=== PATIENT | male | born 1945 | race Caucasian/White ===

== ENCOUNTER 2018-02-28 09:58 | Day surgery (SDC) | payer SELFPAY ==
[2018-02-28] VITALS (7 sets, daily range): BP systolic 109–129; BP diastolic 74–84; PULSE 42–57; RESP 16; TEMP 36–36.3; O2SAT 97–100; BMI 368.7
--- NOTE | 2018-02-28 | IMM_PTH ---
PATIENT: RANDOLPH RUFFIN LOC: [facility] U#:[id number] AGE/SX: 72/M ROOM: RE02/28/[address]: Dr. Hany Coffey MD : 1945 BED: DIS: 02/28/2018 SPEC #: [id number] RECD: 03/01/18 10:56 STATUS: DILCIA SANTANA #: [id number] DANIEL: 02/28/18 00:[address]: Hany Coffey DEPT: IMMUNOHISTOCHEMISTRY RECD BY: Sharlene Dorsey ENTERED: 03/01/18 10:56 SP TYPE: IMMUNO OTHR DR: Dr. Ralf Hawkins MD Tissues: A - Stomach, NOS Procedures: H Pylori (initial) PHYSICIAN & INSTITUTION [place] [address] SPECIMEN INFORMATION: Tissue Source: A ? Antral biopsy Clinical Info: Fecal occult blood positive Specimen Number: [id number] CPT code: 55255 METHODOLOGY: Deparaffinized sections of prefer/formalin-fixed tissue or PAP/DQ stained slides are incubated with monoclonal/polyclonal antibodies/oligonucleotide probes. Localization is made via biotin free immunoperoxidase method. Appropriate controls are performed and reacted as expected. Results on target cell population are indicated in the following table: RESULTS: ANTIBODY / CLONE RESULT Block A H Pylori (polyclonal) negative These tests were developed and their performance characteristics determined by [facility]. They may not have been cleared or approved by the U.S. Food and Drug Administration. The FDA has determined that such clearance or approval is not necessary. INTERPRETATION: A. Antral biopsy: Negative for Helicobacter pylori organisms. SJ:burke 03/01/18
--- NOTE | 2018-02-28 | EGD_PTH ---
PATIENT: RANDOLPH RUFFIN LOC: EN U#:[id number] AGE/SX: 72/M ROOM: RE02/28/[address]: Dr. Hany Coffey MD : 1945 BED: DIS: 02/28/2018 SPEC #: [id number] RECD: 02/28/18 13:15 STATUS: DILCIA SANTANA #: [id number] DANIEL: 02/28/18 00:[address]: Hany Coffey DEPT: SURGICAL PATHOLOGY RECD BY: Jd Carvalho ENTERED: 02/28/18 13:33 SP TYPE: EGD BIOPSY KENNY DR: Dr. Ralf Hawkins MD Tissues: A - Gastric mucous membrane B - Gastric fundus C - Esophageal mucous membrane D - Sigmoid colon biopsy E - Sigmoid colon biopsy Procedures: Surgery Specimen Level IV HEADER OPERATION: EGD; colonoscopy PRE-OP DIAGNOSIS: Fecal occult blood positive TISSUE SUBMITTED: A ? Antral biopsy, B ? Fundic polyp biopsy, C ? Distal esophageal biopsy, D ? Proximal sigmoid polyp, E ? Distal sigmoid polyp MICROSCOPIC DIAGNOSIS A. Antral biopsy: Mild gastritis. B. Fundic gland polyp, biopsy: Fragments of fundic gland polyp. C. Distal esophageal biopsy: Fragment of squamous epithelium with mild chronic inflammation. D. Proximal sigmoid polyp, polypectomy: Tubular adenoma with focal high-grade dysplasia. See comment. E. Distal sigmoid polyp, biopsy: Tubular adenoma. SJ:burke 03/01/18 COMMENT A. The results of immunohistochemistry for Helicobacter pylori will be reported separately ([id number]). D. High grade dysplasia is noted at the luminal surface of the polyp. The resection margin appears to be free of adenomatous changes. MICROSCOPIC DESCRIPTION Slides are reviewed. A. The specimen shows fragments of gastric mucosa with chronic inflammatory cell infiltrates in the lamina propria consisting of lymphocytes and plasma cells, consistent with mild chronic gastritis. GROSS DESCRIPTION A - Received in fixative is one container labeled with the patient's name and designated antral body biopsy. The specimen consists of one irregular fragment of light nair soft tissue that measures 0.4 x 0.2 x 0.1 cm. The specimen is totally submitted in one cassette. B - Received in fixative is one container labeled with the patient's name and designated fundic polyp biopsy. The specimen consists of two irregular fragments of light nair soft tissue that in aggregate measure 0.6 x 0.3 x 0.1 cm. The specimen is totally submitted in one cassette. C - Received in fixative is one container labeled with the patient's name and designated distal esophageal biopsy. The specimen consists of one irregular fragment of light nair soft tissue that measures 0.6 x 0.2 x 0.1 cm. The specimen is totally submitted in one cassette. D - Received in fixative is one container labeled with the patient's name and designated proximal sigmoid polyp. The specimen consists of a pink-red polyp measuring 1.7 x 1.5 x 1 cm. The apparent base is inked. The polyp is serially sectioned and submitted entirely in one cassette. E - Received in fixative is one container labeled with the patient's name and designated distal sigmoid polyp. The specimen consists of a piece of nair-pink polyp measuring 0.5 x 0.5 x 0.3 cm. The specimen is totally submitted in one cassette. / SJ:rg 02/28/18 TC:1 CPT: 88900 x5
--- NOTE | 2018-02-28 12:03 | OP.PCM_ITS ---
Problem List (1) Fecal occult blood test positive Status: Acute Report of Operation Date of Procedure: 02/28/18 Pre-Operative Diagnosis: Fecal occult blood positive Post-Operative Diagnosis: Minimal antral gastritis. Benign-appearing gastric fundic polyp. Sigmoid diverticulosis. 2.5 cm pedunculated polyp proximal sigmoid colon. 1 cm pedunculated polyp distal sigmoid colon Surgery/Procedure Performed:: Esophagogastroduodenoscopy with cold forcep biopsies. Colonoscopy with hot snare polypectomy ?2 Description of Surgical Findings:: Amount and informed consent was obtained. 72-year-old gentleman was taken to the endoscopy suite. He was placed in left loud skin position. He underwent monitored anesthesia care. The oropharynx anesthetized with Topex. Flexible gastroscope was inserted the proximal mid distal esophagus did not appear to be remarkable. EG junction was at 37 cm. The scope was advanced in the stomach minimal erythema of the antrum noted. The scope was advanced through the pylorus the first and second portion of the duodenum were inspected this was not remarkable. The scope was withdrawn back into the stomach and antral biopsy was obtained with cold forcep. Scope was retroflexed the EG junction and cardia inspected. The cardia was not remarkable. The EG junction appear to be intact. There for a few scattered gastric fundic polyps. A cold forcep biopsy of one was obtained. Excess fluid and air was aspirated free. The scope was withdrawn to the distal esophagus and distal esophageal biopsy was obtained. Excess fluid and air was aspirated free the procedure was completed with the patient tolerating it well. The patient was kept in a left lateral decubitus position. Digital rectal exam performed. Lax anal tone. Grade 2-3 internal hemorrhoids. 2+ enlarged prostate without mass. Flexible colonoscope inserted the rectum advanced was somewhat tortuous sigmoid colon. The scope was then readily advanced to the transverse colon with some transabdominal pressure is advanced to the cecum. The cecum ileocecal valve area was nicely achieved. Bowel prep was good. The scope was carefully withdrawn from the ascending transverse and descending colon. And what was felt to be the proximal sigmoid colon at 30 cm a fairly sizable at least 2-1/2 cm diameter pedunculated polyp was encountered. A hot snare using cautery and then cautery with plan was used to resect the pedunculated portion. A Das net was used to retrieve the lesion. 3 separate hemostatic clips were placed at the base of this pedunculated area to assure hemostasis. The scope was then further withdrawn and what was felt to be the distal sigmoid colon close to the rectal junction a much smaller 1 cm pedunculated polyp was encountered. Snare cautery blend setting was used to resect and retrieve this polyp as well. There was significant sigmoid diverticulosis as well. The scope was retroflexed within the rectum the anorectal verge inspected hemorrhoidal changes noted. Excess fluid nurse aspirated free after the scope was replaced up to the proximal sigmoid area to assure hemostasis at that resection site and hemostasis at the more distal resection site. Excess fluid nurse aspirated free the procedure was completed the patient tolerating it well. Impression Minimal antral erythema likely consistent with a mild antral gastritis. Benign- appearing gastric fundic polyps. Sigmoid diverticulosis. Large pedunculated polyp of the proximal sigmoid colon Smaller but unrelated polyp of the distal sigmoid colon It is likely that the proximal sigmoid colon would be an unlikely source of fecal occult blood positivity. The patient's previous colonoscopy was January 04, 2005. We will await final pathology. If dysplasia is identified and will recommend follow-up colonoscopy at 1 year and if not then at 3 years. Cc: Melony Art NP and Dr. Ralf Hawkins and Dr. Eliceo Coffey M.D., F.A.C.S. Type of Anesthesia:: MAC
== END 2018-02-28 13:01 | disposition home or self-care (01) ==
LOC: EN 10:00 → AC 10:04
PROVIDERS: Family Provider Family Medicine; PCP Family Medicine; Visit Provider Surgery
PROC: 0DJD8ZZ Inspection of Lower Intestinal Tract, Via Natural or Artificial Opening Endoscopic (ICD-10-PCS; CPT 45378; principal; 2018-02-28 10:55)
DX: K29.70 Gastritis, unspecified, without bleeding (principal); K31.7 Polyp of stomach and duodenum; K20.9 Esophagitis, unspecified; D12.5 Benign neoplasm of sigmoid colon; K57.30 Diverticulosis of large intestine without perforation or abscess without bleeding; K64.8 Other hemorrhoids; N40.0 Benign prostatic hyperplasia without lower urinary tract symptoms; F41.9 Anxiety disorder, unspecified; Z87.19 Personal history of other diseases of the digestive system; M19.90 Unspecified osteoarthritis, unspecified site; L71.9 Rosacea, unspecified; J30.2 Other seasonal allergic rhinitis; E04.9 Nontoxic goiter, unspecified; E78.00 Pure hypercholesterolemia, unspecified; G30.0 Alzheimer's disease with early onset; F02.80 Dementia in other diseases classified elsewhere, unspecified severity, without behavioral disturbance, psychotic disturbance, mood disturbance, and anxiety; N28.89 Other specified disorders of kidney and ureter; Z87.891 Personal history of nicotine dependence; Z79.82 Long term (current) use of aspirin; Z79.899 Other long term (current) drug therapy
CPT/HCPCS: 43239; 45385; 88305; 88342; J7120

== ENCOUNTER → 2018-08-21 08:02 | Outpatient (CLI) | payer MEDICARE, OTHER, SELFPAY ==
[2018-08-21 10:22] LABS: Thyroid Stim Hormone (TSH) 0.76 uIU/mL (0.358-3.74)
== END ==
PROVIDERS: Family Provider Family Medicine; PCP Family Medicine; Referring Provider Internal Medicine Endocrinology, Diabetes & Metabolism; Visit Provider Internal Medicine Endocrinology, Diabetes & Metabolism
DX: E04.2 Nontoxic multinodular goiter (principal)
CPT/HCPCS: 36415; 84443

== ENCOUNTER → 2018-09-03 07:37 | Outpatient (CLI) | payer MEDICARE, OTHER, SELFPAY ==
--- NOTE | 2018-09-03 07:44 | CT_ITS ---
STUDY: CT ABDOMEN AND PELVIS WITH CONTRAST REASON FOR EXAM: Male, 72 years old. History of renal cell cancer. RADIATION DOSAGE (If Supplied By Facility): CTDIvol = ( 10.72 ) mGy, DLP = ( 1107.20 ) mGycm TECHNIQUE: Transaxial images were obtained from the dome of the diaphragm to the symphysis pubis without oral contrast. 100 ml of Isovue 300 contrast was administered. Sagittal and coronal images were reconstructed. Individualized dose optimization techniques were used for this CT. COMPARISON: June 26, 2015 CT scan abdomen and pelvis FINDINGS: There is a calcified granuloma in the right lower lobe measuring 4.1 mm. There coronary calcifications. There is mild cardiac enlargement. There is calcification of the right hilum compatible granulomatous disease. The liver is mildly inhomogeneous. There are punctate calcifications in the liver compatible with old granulomatous disease. There is a focal low-attenuation measuring 6.4 mm in the periphery of the right hepatic lobe. There is a medially located cystic structure and/or summation artifact similar to prior study measuring 4.5 mm. Gallbladder and extrahepatic biliary system. Normal spleen. Normal pancreas. Normal bilateral adrenal glands. Right kidney: There is a new exophytic nodule measuring 1.2 x 1.1 cm. Not seen on prior studies. There is no evidence of hydronephrosis. There is mild focal left cortical renal thinning. There is vascular calcification in the hilum. There is a minimal hiatal hernia. Normal small intestine. The bowel is tortuous. There are numerous diverticula present without visualized diverticulitis. The appendix is visualized and appears normal. The aorta is tortuous. The aorta measures 2.4 cm. Normal inferior vena cava. There are nonspecific small periaortic lymph nodes. Within the soft tissue between the splenic confluence in the inferior vena cava there is a lymph node that measures 0.8 x 0.9 cm. This is similar to the prior study. Anterior to the bifurcation there is a small focus of mild thickening of the mesentery stable since prior study. The bladder is decompressed wall appears mildly thickened. The prostate is mildly enlarged and persistent to the base of the bladder. The prostate measures 4.0 x 4.8 cm. There is a left-sided fatty inguinal hernia. There is multilevel spondylosis. At the level of L203 L3-L4 and L4-L5 and L5-S1 there are broad-based disc bulges with moderate to severe neural foraminal narrowing [id number] central stenosis. CT/Abdomen/Pelvis WITH Contrast IMPRESSION: There is a 1.2 x 1.1 cm hyperdense mass in the periphery of the right kidney that was not definitively seen on prior study. This warrants further investigation given patient's clinical history of renal cell cancer. This may represent a recurrence. Stable small cystic structures in the liver. Mild hepatic steatosis mild inhomogeneity of the liver which is nonspecific and similar to prior study. Nonspecific small mesenteric and retroperitoneal lymph nodes. There is possible mesenteric scarring or subtle lymphadenopathy within the mesentery or a tiny focus of small vessels measuring 2.0 x 1.1 cm stable since prior study. Diverticulosis no visualized diverticulitis. Mild prostate enlargement. Left-sided inguinal hernia Multilevel degenerative disc disease. Evidence of old granulomatous disease Coronary artery calcification. Electronically Signed: Yolanda Hsu MD at 22:53 EST Tel , Service support ,
[2018-09-03 08:10] LABS: CREATININE FINGERSTICK 1.4 mg/dL (0.70-1.30)
== END ==
PROVIDERS: Family Provider Family Medicine; PCP Family Medicine; Referring Provider Urology; Visit Provider Urology
DX: N28.89 Other specified disorders of kidney and ureter (principal); K76.89 Other specified diseases of liver; K76.0 Fatty (change of) liver, not elsewhere classified; K57.90 Diverticulosis of intestine, part unspecified, without perforation or abscess without bleeding; N40.0 Benign prostatic hyperplasia without lower urinary tract symptoms; K40.90 Unilateral inguinal hernia, without obstruction or gangrene, not specified as recurrent; Z85.528 Personal history of other malignant neoplasm of kidney
CPT/HCPCS: 74177; Q9967

== ENCOUNTER 2019-05-13 07:17 | Day surgery (SDC) | payer MEDICARE, OTHER, SELFPAY ==
[2019-04-30 08:16] VITALS: BMI 25.9
--- NOTE | 2019-04-30 08:39 | HP_ITS ---
Intake Vital Signs 04/30/19 Height 5 ft 8 in 04/30/19 Weight: 171 lb 04/30/19 Body Mass Index (BMI) 25.9 04/30/19 Blood Pressure 128/70 H 04/30/19 Blood Pressure Location Rt brachial 04/30/19 Respiratory Rate 18 04/30/19 Pulse Rate 56 L 04/30/19 Pulse Source Monitor 04/30/19 Temperature 98.0 F 04/30/19 Pulse Ox 96 04/30/19 Oxygen Delivery Method room air 04/30/19 Body Mass Index (BMI) 368.7 Intake Visit Reasons: C-Scope Consult due for 1 yr Scope [employer] Required: No Is patient in pain?: No Allergies No Known Allergies Allergy (Verified 04/30/19 08:17) Medications aspirin 81 mg tablet,delayed release 81 mg PO QDAY 02/26/18 [History Confirmed 04/30/19] atorvastatin 10 mg tablet 10 mg PO QDAY 02/26/18 [History Confirmed 04/30/19] donepezil 10 mg tablet 10 mg PO BID tab 02/26/18 [History Confirmed 04/30/19] ipratropium bromide 42 mcg (0.06 %) nasal spray 2 spray INTRANASAL TID 02/26/18 [History Confirmed 04/30/19] lactobacillus combination no.9 4 billion cell capsule 4,000 mmu cells PO QDAY 02/26/18 [History Confirmed 04/30/19] memantine 28 mg capsule sprinkle,extended release 24hr 28 mg PO QDAY 02/26/18 [History Confirmed 04/30/19] olopatadine 0.2 % eye drops 1 drp OPHTHALMIC QDAY 02/26/18 [History Confirmed 04/30/19] tamsulosin 0.4 mg capsule 0.4 mg PO QDAY 02/26/18 [History Confirmed 04/30/19] eszopiclone 2 mg tablet 1 mg PO QHS tab 04/30/19 [History Confirmed 04/30/19] [facility] Medical History (Updated 04/30/19 @ 08:36 by Hany Coffey MD) Personal history of colonic polyps (Acute) Anxiety (Acute) Hemorrhoids (Acute) Blood in stool (Acute) Rosacea (Acute) Arthritis (Acute) Seasonal allergies (Acute) Hypercholesterolemia (Acute) Goiter, nontoxic, multinodular (Acute) Early onset Alzheimer's dementia (Acute) Abdominal pain (Acute) Alzheimer's dementia (Acute) Diarrhea (Acute) Surgical History (Updated 04/30/19 @ 08:15 by Rebecca Gardiner) No history of previous surgery (Acute) Family History (Updated 04/30/19 @ 08:15 by Rebecca Gardiner) Mother Diabetes Father Cancer Lung cancer High cholesterol Social History (Updated 04/30/19 @ 08:40 by Hany Coffey MD) Smoking Status: Former smoker second hand exposure: No alcohol intake: current substance use type: does not use caffeine: Yes (Rarely) what type of physical activity do you participate in: none frequency: does not exercise seatbelt use: always HPI HPI HPI: RANDOLPH RUFFIN, is a 73 M who presents to the office today for HPI HPI Surgical H&P: Yes HPI: RANDOLPH RUFFIN, is a 73 M who presents to the office today for one-year follow-up colonoscopy based upon his previous history of colonoscopy with large pedunculated proximal sigmoid polyp with high-grade dysplasia. The patient has dementia. He is accompanied by his . There apparently have been issues over the past year. They winter in [place]. Both in December and in January he had incontinence of stool while in the shower. Apparently they did not specifically seek follow-up at that time. Also to the patient has had apparently extensive evaluation at the [facility]. The patient previously was cared for by Dr. Sanchez but now has converted his care to Dr. Ralf Hawkins. He has been seen within the past month. The is also concerned about weight loss. Apparently at the patient's peak he weighed 188 pounds and currently weighs 171 pounds. I cannot get any symptoms out of the patient regarding heartburn or epigastric pain. He complains of a left subcostal left flank discomfort which is been present for 2 years. He had previously last year had a CT scan suggesting a possible right renal mass. He was evaluated by and by the report of the this is felt to be benign with follow-up scheduled for [address] scan also suggested a small left inguinal hernia containing fat. She did state that he recently had an abdominal ultrasound and that Dr. Hawkins as this information as well as the additional work-up. He is not currently on any medication for reflux or peptic ulcer disease. Only anticoagulant is aspirin. Combined esophagogastroduodenoscopy with biopsy and colonoscopy with hot snare polypectomy performed March 01, 2018 reflected the following: Minimal antral erythema likely consistent with a mild antral gastritis. Benign- appearing gastric fundic polyps. H. pylori negative Sigmoid diverticulosis. Large pedunculated polyp of the proximal sigmoid colon. Tubular adenoma with high-grade dysplasia Smaller but unrelated polyp of the distal sigmoid colon. Tubular adenoma. ROS General General: No weight change, appetite, fatigue, colon cancer, breast cancer or weakness HEENT HEENT: No difficulty swallowing, eye injury, eye surgery, swollen glands or hoarseness Endo Endocrine: No thyroid disease, diabetes mellitus, thyroid cancer, Hair loss, heat intolerance or cold intolerance Skin Skin: No rash or changing moles Breast Breast: No left breast lump, right breast lump, nipple discharge, breast pain, abnormal mammogram, abnormal US or breast enlargement Musc Musculoskeletal: Yes arthritis; no back problems, rheumatoid arthritis, gout or joint pain Cardio Cardiovascular: No murmur, pacemaker, heart disease, atrial fibrillation, high blood pressure, heart attack, heart stent, palpitations, shortness of breat with exertion or chest pain Psych Psychiatric: No depression, anxiety or hearing voices Resp Respiratory: No shortness of breath, No sleep apnea, No cough, No COPD, No asthma, No emphysema, No wheezing Gastro Gastrointestinal: Yes abdominal pain, No nausea or vomiting, Yes diarrhea, No constipation, No blood in stool, No acid reflux, No hemorrhoids, No ulcers, No gallbladder problem, No black,tarry stools Pedro Hematologic: No blood thinners, No blood disorders, No bleeding, No anemia, No blood clots Neuro Neurologic: No system reviewed and no additional complaints, except as docu, No as per HPI, No abnormal walking, No abnormal hearing, No abnormal movements, No abnormal speech, No behavioral changes, No burning sensations, No confusion, No seizure-like activity, No unsteadiness, No dizziness, No localized weakness, No frequent falls, No headache(s), No lack of coordination, No loss of vision, No memory loss, No numbness, No other visual disturbances, No radiating pain, No restless legs, No sensory deficit, No fainting, No tingling, No tremor(s), No weakness, No other Exam Const General: cooperative, healthy appearing, no acute distress, well developed Nutritional Appearance: average body habitus Orientation: alert, awake, oriented x3 Other: Patient is not able to answer historical questions secondary to chronic dementia HENMT Head: normal to inspection Eyes General: appearance normal, both eyes and all related structures Neck Neck: normal visual inspection Chest Chest palpation & inspection: normal inspection of the chest Breast Palpation: No nipple discharge Other: Back nontender to percussion Resp Effort & Inspection: normal respiratory effort Auscultation: clear to auscultation bilaterally Cardio Rate: regular rate Rhythm: regular rhythm Heart Sounds: no murmurs GI Palpation: soft, no hepatosplenomegaly Auscultation: normal bowel sounds Other: Small nontender left inguinal hernia Neuro Cognition: abnormal cognition Extrem General: no calf tenderness bilaterally Psych Affect: normal affect Assessment & Plan Problems 1. Personal history of colonic polyps Z86.010 Plan Personal history of large sigmoid polyp tubular adenoma with grade dysplasia. Colonoscopy February 2018 with recommendations for follow-up at 1 year. 2 episodes of fecal incontinence in December and January with current complaint of more frequent stools 4-5 times daily of undetermined etiology. Previous CT scan suggesting small left inguinal hernia with fat. Minimal current findings on clinical examination and asymptomatic. Complaint of left flank pain chronic Ongoing medical and urology follow-up of right renal finding on CT concerned regarding weight loss with by her report ongoing primary care evaluation. I recommended the patient a colonoscopy with possible polypectomy if indicated. I recommend random colonic biopsies evaluating for possible microcytic colitis. Because of his dementia we will utilize monitored anesthesia care. He is aware of the technique, benefit, risk and alternatives. We will schedule and proceed as noted. I have additionally asked the to bring me copies of the [facility] work- up CC: Dr. Ralf Coffey M.D., F.A.C.S. Coding Level of Care Code Off vis,est,level 3 Diagnoses Personal history of colonic polyps Z86.010 04/30/19 0840 <Electronically signed by Hayn lopez MD> Date _ Hany Coffey MD I have re-examined the patient. There are no clinical changes since date of exam.
[2019-05-13 07:45] VITALS: BP 106/60; PULSE 57; RESP 14; TEMP 37; O2SAT 98; BMI 24.9
--- NOTE | 2019-05-13 08:30 | COLBX_PTH ---
PATIENT: RANDOLPH RUFFIN LOC: EN U#:[id number] AGE/SX: 73/M ROOM: RE05/13/[address]: Dr. Hany Coffey MD : 1945 BED: DIS: 05/13/2019 SPEC #: [id number] RECD: 05/13/19 11:09 STATUS: DILCIA SANTANA #: [id number] DANIEL: 05/13/19 08:[address]: Hany Coffey DEPT: SURGICAL PATHOLOGY RECD BY: Regina Wilson ENTERED: 05/13/19 11:24 SP TYPE: COLON BX KENNY DR: Dr. Ralf Hawkins MD Tissues: A - COLON BIOPSY B - Sigmoid colon biopsy Procedures: Surgery Specimen Level IV HEADER OPERATION: Colonoscopy (MAC) PRE-OP DIAGNOSIS: History colonic polyps TISSUE SUBMITTED: A. Random biopsy, B. Proximal sigmoid colon polyp MICROSCOPIC DIAGNOSIS A. Colon, random biopsy: No pathologic diagnosis. B. Proximal sigmoid colon polyp, biopsy: Polypoid fragments of benign colonic mucosa with focal mucosal hemorrhage. See comment. AM:burke 05/14/19 COMMENT B. Neither hyperplastic nor adenomatous change is seen. Clinical correlation is suggested. MICROSCOPIC DESCRIPTION Slides are reviewed. GROSS DESCRIPTION A - Received in fixative is one container labeled with the patient's name and designated random colon biopsy. The specimen consists of multiple irregular fragments of light nair soft tissue that in aggregate measure 0.6 x 0.2 x 0.1 cm. The specimen is totally submitted in one cassette. B - Received in fixative is one container labeled with the patient's name and designated proximal sigmoid polyp. The specimen consists of multiple irregular fragments of light nair soft tissue that in aggregate measure 0.4 x 0.4 x 0.1 cm. The specimen is totally submitted in one cassette. / SJ:burke 05/13/19 TC:5 CPT: 03287 x2
--- NOTE | 2019-05-13 09:06 | OP.ENDO_ITS ---
05/13/2019 Ralf Hawkins [address] [place] [address] Re : Colonoscopy procedure for Urbano Chan Dear Dr. Hawkins This procedure was performed on Monday, May 13, 2019. My impressions and recommendations are as follows: Impressions : - Hemorrhoids found on perianal exam. - Diverticulosis in the sigmoid colon and in the descending colon. Biopsied. - One 12 mm polyp in the proximal sigmoid colon, removed with a cold biopsy forceps. Resected and retrieved. This looked like it could have been the base of the very large polyp that was resected 02/2018. Benign appearance. Recommendations : - Discharge patient to home. - Resume previous diet. - Continue present medications. - Repeat colonoscopy in 3 years for surveillance. - Telephone my office for pathology results in 1 week. My findings are described in the full procedure note, which is enclosed. If I can be of further assistance, please feel free to contact me at Doctor phone number(s): Work: . Sincerely, Hany Coffey MD 05/13/2019 9:06:38 AM This report has been signed electronically.
[2019-05-13 09:08] VITALS: BP 106/60; BP 91/61; PULSE 60; RESP 14; TEMP 35.8; O2SAT 93
[2019-05-13 09:12] VITALS: BP 106/60; BP 98/69; PULSE 55; RESP 16; O2SAT 97
[2019-05-13 09:15] VITALS: BP 106/60; BP 93/68; PULSE 49; RESP 14; O2SAT 95
[2019-05-13 09:27] VITALS: BP 106/60; BP 118/76; PULSE 53; RESP 14; TEMP 36.1; O2SAT 98
[2019-05-13 09:49] VITALS: BP 106/60
== END 2019-05-13 10:10 | disposition home or self-care (01) ==
LOC: EN 07:18 → AC 07:18
PROVIDERS: Family Provider Family Medicine; PCP Family Medicine; Referring Provider Surgery; Visit Provider Surgery
PROC: 0DJD8ZZ Inspection of Lower Intestinal Tract, Via Natural or Artificial Opening Endoscopic (ICD-10-PCS; CPT 45378; principal; 2019-05-13 08:25)
DX: K63.5 Polyp of colon (principal); Z86.010 Personal history of colon polyps; K64.9 Unspecified hemorrhoids; K57.30 Diverticulosis of large intestine without perforation or abscess without bleeding; F41.9 Anxiety disorder, unspecified; L71.9 Rosacea, unspecified; M19.90 Unspecified osteoarthritis, unspecified site; J30.2 Other seasonal allergic rhinitis; E78.00 Pure hypercholesterolemia, unspecified; G30.9 Alzheimer's disease, unspecified; F02.80 Dementia in other diseases classified elsewhere, unspecified severity, without behavioral disturbance, psychotic disturbance, mood disturbance, and anxiety; N28.1 Cyst of kidney, acquired; E04.2 Nontoxic multinodular goiter; Z79.82 Long term (current) use of aspirin; Z79.899 Other long term (current) drug therapy; Z87.891 Personal history of nicotine dependence
CPT/HCPCS: 45380; 88305; J7120

== ENCOUNTER → 2019-09-15 07:36 | Outpatient (CLI) | payer MEDICARE, OTHER, SELFPAY ==
--- NOTE | 2019-09-15 07:38 | CT_ITS ---
STUDY: CT ABDOMEN AND PELVIS WITH CONTRAST REASON FOR EXAM: Male, 73 years old. Patient has a history of right renal cell carcinoma. Follow-up examination. RADIATION DOSAGE (If Supplied By Facility): CTDIvol = ( 31.1 ) mGy, DLP = ( 1258.72 ) mGycm TECHNIQUE: Transaxial images were obtained from the dome of the diaphragm to the symphysis pubis without oral contrast. IV 100mL Isovue-370 100 was administered. Sagittal and coronal images were reconstructed. Individualized dose optimization techniques were used for this CT. COMPARISON: Comparison is made with prior study dated September 03, 2018. FINDINGS: Stable minimal increased markings at the lung bases suggestive of scarring. Stable bibasilar calcified granulomas as well as right infrahilar calcified lymph node. Coronary artery calcification. There is decreased attenuation of the liver consistent with steatosis. Stable subcentimeter cyst is seen in the periphery of the inferior aspect of the right lobe of the liver. Normal gallbladder and extrahepatic biliary system. Normal spleen. Normal pancreas. Normal bilateral adrenal glands. Stable 1 cm x 1.1 cm hypodense exophytic nodule in the posterior-lateral aspect of the midportion of the right kidney. Normal left kidney. There is a small hiatal hernia. Normal small intestine. Normal colon. The appendix is visualized and appears normal. There is diffuse atherosclerotic calcification of the abdominal aorta, without a demonstrated aneurysm. Normal inferior vena cava. Normal retroperitoneum. Normal urinary bladder. There is enlargement of the prostate gland. It measures 4.3 cm x 3.9 cm. Central calcifications are seen. There is a left-sided inguinal hernia containing adipose tissue. Small umbilical hernia containing fat. There are diffuse degenerative changes of the visualized lumbar spine. CT/Abdomen/Pelvis WITH Contrast IMPRESSION: Stable 1 cm hypodense nodule in the lateral peripheral aspect of the right kidney. Fatty infiltration of the liver. Electronically Signed: Derrek Carpio, at 9:41 EST , Service support ,
[2019-09-15 07:50] LABS: EGFR FINGERSTICK > 60.0000 mL/min (>60)
== END ==
PROVIDERS: Family Provider Family Medicine; PCP Family Medicine; Referring Provider Urology; Visit Provider Urology
DX: D41.01 Neoplasm of uncertain behavior of right kidney (principal)
CPT/HCPCS: 74177; Q9967

== ENCOUNTER → 2019-12-17 06:52 | Outpatient (CLI) | payer MEDICARE, OTHER, SELFPAY ==
[2019-12-03 14:21] VITALS: BMI 25.2
--- NOTE | 2019-12-17 06:53 | ECHOD_ITS ---
Reason For Study: SYNCOPE Procedure This was a 2D Doppler, Color Flow transthoracic echocardiogram. Exam performed in department. Left Ventricle Normal LV size. The estimated ejection fraction is 70 %. No evidence for diastolic dysfunction. No regional wall motion abnormalities noted. Right Ventricle Normal RV size. Normal systolic function. Atria Normal left atrium. Normal right atrium. No doppler evidence for ASD. Mitral Valve There is no mitral valve stenosis. No mitral valve insufficiency. Tricuspid Valve There is no tricuspid stenosis. Trivial tricuspid valve insufficiency. Pulmonary artery systolic pressure is 20 mmHg. Aortic Valve Trisinus/trileaflet aortic valve. There is no aortic stenosis. No aortic valve insufficiency. Pulmonic Valve There is no pulmonic valvular stenosis. No pulmonic valve insufficiency. Great Vessels Normal aortic root. Pericardium/Pleural No pericardial effusion. MMode/2D Measurements & Calculations LVIDd: 4.9 cm IVSd: 0.88 cm Ao root diam: 4.0 cm LVIDs: 3.4 cm LVPWd: 1.1 cm RVDd: 3.8 cm FS: 31.3 % LAV(MOD-bp): 48.0 ml LVAd ap4: 30.9 cm2 SV(MOD-sp4): 56.9 ml LAV(MOD-bp) Indexed: 25.5 ml/m2 EDV(MOD-sp4): 95.1 ml LAV(MOD-sp2): 55.6 ml EDV(sp4-el): 94.9 ml LAV(MOD-sp4): 35.6 ml LVAs ap4: 17.7 cm2 ESV(MOD-sp4): 38.3 ml ESV(sp4-el): 37.8 ml EF(MOD-sp4): 59.8 % EF(sp4-el): 60.2 % SV(sp4-el): 57.1 ml LA A4 area: 14.7 cm2 LA dimension(2D): 3.6 cm RA A4 area: 14.6 cm2 Time Measurements MV dec time: 0.26 sec Doppler Measurements & Calculations MV E max marshall: 72.2 cm/sec Lat Peak E' Marshall: 8.8 cm/sec Med Peak E' Marshall: 7.8 cm/sec MV A max marshall: 78.8 cm/sec E/E' lat: 8.2 E/E' med: 9.3 MV E/A: 0.92 Ao V2 max: 127.1 cm/sec LV V1 max: 102.0 cm/sec PA V2 max: 147.5 cm/sec Ao max P.5 mmHg LV V1 max P.2 mmHg TR max marshall: 190.7 cm/sec TR max P.5 mmHg Interpretation Summary The estimated ejection fraction is 70 %. No evidence for diastolic dysfunction. Ordering Physician: González Valdez Referring Physician: VICKIE DUMONT Performed By: Leatha Roper RDCS
--- NOTE | 2019-12-18 11:49 | STRESSREP_ITS ---
Stress Test Report Date: 12/18/2019 Procedure: Exercise tolerance test/imaging study Indications: Syncope Consent: Per the patient Procedure: The patient exercised on a Jacinto protocol for 4 minutes and 30 seconds achieving a peak heart rate of 127 bpm (86 % predicted maximal heart rate) with a peak blood pressure 170/80 mmHg and a peak MET capacity of 6.4 METs. The baseline ECG demonstrated normal sinus rhythm. The peak exercise ECG demonstrated no significant ischemic changes. EKG during recovery revealed no significant ischemic changes [There were no significant cardiac dysrhythmias pretest, during exercise, or recovery]. The functional capacity was considered slightly decreased for age. There was [no complaint of chest discomfort during exercise or recovery]. The examination was discontinued secondary to leg discomfort. Impression: 1. Technically adequate (percent predicted maximal heart rate greater than 85%) exercise tolerance test 2. Stress test is negative for exercise-induced EKG changes of ischemia 3. The test test is negative for exercise-induced chest pain 4. Functional capacity is slightly decreased for age 5. Nuclear images pending Myocardial perfusion imaging study: Technique: The patient was injected with 12 mCi of technetium 99m Cardiolite and subsequently rest SPECT Cardiolite nuclear imaging was obtained in the horizontal long, vertical long, and short axis views. The patient exercised on a Jacinto protocol. Please see above for details. The patient was injected with 36 mCi of technetium 99m Cardiolite and subsequently stress SPECT Cardiolite nuclear imaging was obtained in the horizontal long, vertical long, and short axis views. A gated Cardiolite study at peak stress was obtained. Interpretation: Rest and stress SPECT Cardiolite nuclear imaging status post realignment, normalization, and attenuation correction, demonstrates overall normal myocardial radioisotope uptake. The gated Cardiolite study demonstrates no significant regional wall motion abnormalities. The reported LVEF is 63 %. Impression: 1. There is no evidence of significant ischemia or infarction. 2. The gated Cardiolite study reports an LVEF of 63 %. This note was generated with [employer] software. It may contain incorrect words, spelling, and punctuation that were not noted in checking the note before signing.
== END ==
PROVIDERS: PCP Family Medicine; Referring Provider Specialist; Visit Provider Specialist
DX: R94.31 Abnormal electrocardiogram [ECG] [EKG] (principal); R55 Syncope and collapse
CPT/HCPCS: 78452; 93017; 93306; A9500; A4216

== ENCOUNTER → 2019-12-19 12:24 | Outpatient (CLI) | payer MEDICARE, OTHER, SELFPAY ==
[2019-12-03 14:21] VITALS: BMI 25.2
[2019-12-19 13:53] LABS: Color, Urine Yellow (Yellow); Glucose, Dipstick 50 mg/dl (Normal); Ketone-Dipstick Negative (Negative); Leukocyte Esterase-Dipstick Negative /ul (Negative); Nitrite-Dipstick Negative (Negative); Occult Blood-Urine 25 /ul (Negative); Protein-Dipstick Negative (Negative); Specific Gravity, Urine 1.025 (1.002-1.030); Urine Bilirubin Dipstick Negative (Negative); Urine Clarity Turbid (Clear); Urine Urobilinogen Normal (Normal)
== END ==
PROVIDERS: PCP Family Medicine; Referring Provider Family Medicine; Visit Provider Family Medicine
DX: N39.0 Urinary tract infection, site not specified (principal)
CPT/HCPCS: 81002; 87086; 87088

== ENCOUNTER 2020-02-18 04:58 | Observation (INO) | payer MEDICARE, OTHER, SELFPAY ==
[2020-01-06 10:07] VITALS: BMI 25.7
[2020-02-18] VITALS (13 sets, daily range): BP systolic 118–152; BP diastolic 66–87; PULSE 41–80; RESP 10–18; TEMP 36.4–37.2; O2SAT 93–100; BMI 24.5; BMI 25.1
--- NOTE | 2020-02-18 05:15 | RAD_ITS ---
STUDY: X-RAY CHEST REASON FOR EXAM: Male, 74 years old. SYNCOPE TECHNIQUE: Single AP portable view of the chest. COMPARISON: 06/26/2015 FINDINGS: There are superimposed monitor leads. More shallow inspiratory level on current examination with compression of the tendon parenchyma. Stable calcified granulomata. There is no demonstrated pleural abnormality. Normal size heart. Normal mediastinum and sierra. Normal visualized pulmonary arteries. Normal visualized aortic arch and descending thoracic aorta. There are diffuse degenerative changes of the visualized thoracic spine. Healed left posterior fifth and seventh rib deformity. There is no demonstrated abnormality of the visualized soft tissue structures of the upper abdomen. RAD/Chest 1 View (Portable) IMPRESSION: More shallow inspiratory level with compression of dependent parenchyma. Probable atelectasis left base. No pulmonary edema, congestive heart failure or confluent pneumonia. Degenerative changes, remote healed rib fractures and remote granulomatous exposure. Electronically Signed: Tamia Christianson MD at 5:37 EDT , Service support ,
--- NOTE | 2020-02-18 05:15 | EKG12_ITS ---
Test Reason : SYNCOPE Blood Pressure : / mmHG Vent. Rate : 044 BPM Atrial Rate : 044 BPM P-R Int : 198 ms QRS Dur : 110 ms QT Int : 448 ms P-R-T Axes : 001 052 030 degrees QTc Int : 383 ms Marked sinus bradycardia ST elevation, consider early repolarization Abnormal ECG Confirmed by JAMIE JULES, TAWNY ([id number]), editor city [place] ([id number]) on 02/23/2020 10:52:34 AM Referred By: CHIDI Confirmed By:YANNI AYALA MD
--- NOTE | 2020-02-18 05:16 | CT_ITS ---
STUDY: CT BRAIN WITHOUT CONTRAST REASON FOR EXAM: Male, 74 years old. SYNCOPE -- [facility] RADIATION DOSAGE (If Supplied By Facility): CTDIvol = ( 44.99 ) mGy, DLP = ( 812.98 ) mGycm TECHNIQUE: Transaxial CT imaging of the brain was performed without administration of intravenous contrast material. Individualized dose optimization techniques were used for this CT. COMPARISON: CT sinus 10/16/2016. MRI brain 04/28/2014 FINDINGS: Normal soft tissue structures. Normal calvarium. There is moderate cerebral atrophy with widening of the extra-axial spaces and ventricular dilatation. There are areas of decreased attenuation within the white matter tracts of the supratentorial brain, consistent with microvascular disease changes. There are small punctate calcifications of the basal ganglia which are seen in the aging brain as a normal variant. Normal brainstem. There is mild cerebellar atrophy. There is no intracranial hemorrhage. There are no findings of an acute ischemic infarction. Normal visualized paranasal sinuses. CT/Brain/Head without Contrast IMPRESSION: Chronic involutional changes of the brain. There is no acute intracranial pathology. Electronically Signed: Tamia Christianson MD at 5:46 EDT , Service support ,
--- NOTE | 2020-02-18 05:16 | ED.VIS.GEN ---
History of Present Illness Chief Complaint: Syncope Informant: Patient Narrative: Presents with syncopal episode. He was on the toilet and had syncope. His came in and he was laying on the ground face first and sweaty. She stated he was unconscious for approximately 20 minutes. He was breathing on his own. He finally came around when EMS arrived. He has chronic dementia. He does not remember what happened. He denies any complaints at this time. He denies any pain or injury. There is no external evidence of injury. Blood sugar was 89 for EMS. EKG was obtained showing sinus bradycardia for EMS. Patient has a history of sinus bradycardia. In November he had a syncopal event in [place]. He was evaluated in the emergency department and his heart rate slowly recovered. He was seen as an outpatient by cardiology having a negative stress test and echocardiogram with normal ejection fraction. Cardiology wanted to watch this and see if it happens again. They tried to get him to wear a event monitor but he kept removing it due to his dementia so they could not get a good reading. Current severity is resolved. He is resting comfortably at his baseline dementia. He is on no blood thinners. Denies any neck pain or other injury - Past Medical History (1) Fecal occult blood test positive Status: Acute (2) Anxiety Status: Chronic (3) Arthritis Status: Chronic (4) Bradycardia Status: Chronic (5) Goiter, nontoxic, multinodular Status: Chronic (6) Hemorrhoids Status: Chronic (7) Hypercholesterolemia Status: Chronic (8) Personal history of colonic polyps Status: Chronic (9) Rosacea Status: Chronic (10) Seasonal allergies Status: Chronic (11) Syncope Status: Resolved Past Medical History - Allergies and Home Meds Allergies/Adverse Reactions: Allergies doxycycline Allergy (Intermediate, Verified 02/18/20 05:08) syncope,hypotension Primary Care Physician: Ralf Hawkins MD [Primary Care Provider] - Prior records reviewed: Yes Past Medical History: - - See problem list Surgical History: noncontributory Lives: With Family Smoking Status: Former smoker Alcohol: None Drugs: None Review of Systems General: Denies: Chills, Fever, Sweats Eyes: Denies: Visual changes - bilaterally, Diplopia ENT: Denies: Rhinorrhea, Sore throat Cardiovascular: Denies: Chest pain, Palpitations Respiratory: Denies: Dyspnea, Cough, Dyspnea on exertion Gastrointestinal: Denies: Abdominal pain, Nausea, Vomiting, Diarrhea, Melena, Hematochezia Genitourinary: Denies: Dysuria, Hematuria, Frequency Musculoskeletal: Denies: Back pain, Extremity Pain Skin: Denies: Rash, Wounds Neurological: Denies: Headache, Weakness, Numbness Physical Exam Vital Signs/Narrative: Vital Signs Temp Pulse Resp BP Pulse Ox 02/18/20 04:59 97.6 F L 41 L 12 129/87 H 99 General: Well nourished, Well developed, No Acute Distress Head: Normocephalic, Atraumatic Eyes: Perrl, EOMI ENT: Moist mucous membranes, No rhinorrhea Neck: Supple, Nontender Cardiovascular: Regular rhythm, No murmurs, Bradycardia. Negative for: Regular rate Respiratory: No distress, CTA bilaterally, Chest nontender Abdomen: Soft, Nontender, Nondistended, Normal bowel sounds Back: Nontender, Normal Inspection Extremities: Nontender, No edema Skin: Normal color, No rash Neurological: Alert, Oriented x3, Cranial nerves II-XII grossly intact, Normal Strength, Normal Sensation Psychological: Normal affect, Normal Mood Diagnostic/Tx/Re-eval - Medical Decision Making No evidence of external injury. CT head lab work chest x-ray and EKG obtained. EKG shows sinus bradycardia at a rate of 44. Normal DE interval. No dropped beats. I suspect the patient had a syncopal episode secondary to this bradycardia. Currently his blood pressure is 129/87 on arrival. We will monitor this. CT head negative. Chest x-ray shows no acute abnormalities. Lab work including CBC BMP troponin showed no acute abnormalities. Patient remained stable here. Heart rate came up into the 50s to 60s at times. He is asymptomatic resting comfortably with a normal blood pressure. Discussed with the as well as the hospitalist and cardiology Dr. Pérez. Admit him for further monitoring and cardiology consult for possible pacemaker evaluation - Critical Care Time Critical care time (excluding procedures): 30-74 minutes ED Disposition - Plan for ED Patient: Disposition: Acute Care Hospital [facility] Diagnosis: Syncope and collapse, Sinus bradycardia
[2020-02-18 05:23] LABS: Absolute Lymphocyte Count 2.16 X10^3/uL (0.83-4.51); Basophil# 0.05 X10^3/uL; Basophil% 0.7 % (0-1); Eosinophil# 0.17 X10^3/uL; Eosinophils% 2.4 % (0-5); Hematocrit 44.4 % (40-54); Hemoglobin 14.6 g/dL (13.0-16.5); Lymphocyte # 2.16 X10^3/ul (4.0); Lymphocyte % 29.9 % (19-41); Mean Corp Hgb Conc 32.9 g/dL (32-36); Mean Corpuscular Hgb 30.9 pg (27.0-32.0); Mean Corpuscular Volume 93.9 fL (80-94); Mean Platelet Vol. 10.7 fl (6.2-12.0); Monocyte# 0.85 X10^3/uL; Monocyte% 11.8 % (0-10); NRBC Flagged by Analyzer 0 % (0-5); Neutrophil # 3.95 X10^3/uL (2.7-7.7); Neutrophil % 54.5 % (47-70); Platelet Count 187 K/mm3 (150-450); RBC Distribution Width CV 12.2 % (11.6-14.6); RBC Distribution Width SD 42.4 fl (35.1-43.9); Red Blood Count 4.73 M/mm3 (4.6-6.2); White Blood Count 7.2 K/mm3 (4.4-11.0)
[2020-02-18 05:37] LABS: Anion Gap 4 (5-15); BUN 13 mg/dL (7-18); BUN/Creat Ratio 11.2 RATIO (10-20); Calcium,Total 8.3 mg/dL (8.5-10.1); Chloride 105 mmol/L (98-107); Creatinine, Serum 1.16 mg/dL (0.70-1.30); EST Glomerular Filtration Rate 65 mL/min (>60); Est Glom Filt Rate - Afr Amer 79 mL/min (>60); Estimated Creatinine Clearance 57.69 ml/min; Glucose 133 mg/dL (74-106); Potassium 3.7 mmol/L (3.5-5.1); Sodium Level 141 mmol/L (136-145)
--- NOTE | 2020-02-18 05:55 | HP.PCM_ITS ---
Problem List (1) Syncope and collapse Status: Acute (2) Sinus bradycardia Status: Acute (3) Personal history of colonic polyps Status: Chronic (4) Anxiety Status: Chronic (5) Hemorrhoids Status: Chronic (6) Rosacea Status: Chronic (7) Arthritis Status: Chronic (8) Seasonal allergies Status: Chronic (9) Hypercholesterolemia Status: Chronic (10) Goiter, nontoxic, multinodular Status: Chronic History of Present Illness Date of Admission: 02/18/20 Chief Complaint: syncope The patient is a 74 year old M with a significant history of BPH and Alzheimer dementia who presented to emergency department with syncope and collapse. Patient heard a bang at the restroom. When patient's went to the she found patient sitting on the toilet seat unresponsive. Patient called a neighbor who is a nurse and reportedly patient did not have pulse. However patient was breathing. When paramedics arrived patient was responsive. At emergency department EKG showed sinus bradycardia with rate in the 40s. Later on telemetry showed ventricular rates in the 50s. Of note while in [place] earlier part of this year (2019) patient had a syncopal episode and was found to be bradycardic. Patient saw , direct support professional home health and stress test and an echocardiogram was done. A 30-day event monitor was attempted. However because patient has dementia he could not keep the monitor on. Past Medical History Past Medical History (Chronic Problems): Chronic Problems (Last Reviewed 02/18/20 @ 06:[address] Roque Naik MD) Bradycardia (Chronic) Personal history of colonic polyps (Chronic) Anxiety (Chronic) Hemorrhoids (Chronic) Rosacea (Chronic) Arthritis (Chronic) Seasonal allergies (Chronic) Hypercholesterolemia (Chronic) Goiter, nontoxic, multinodular (Chronic) Medical History: Medical History (Last Reviewed 02/18/20 @ 07:[address] Roque Naik MD) Bradycardia (Chronic) R00.1 Syncope (Resolved) Onset Date: 11/30/19 R55 Personal history of colonic polyps (Chronic) Z86.010 Anxiety (Chronic) F41.9 Hemorrhoids (Chronic) K64.9 Rosacea (Chronic) L71.9 Arthritis (Chronic) M19.90 Seasonal allergies (Chronic) J30.2 Hypercholesterolemia (Chronic) E78.00 Goiter, nontoxic, multinodular (Chronic) E04.2 Alzheimer's dementia G30.9, F02.80 Abdominal pain R10.9 Diarrhea R19.7 Blood in stool (Inactive) K92.1 Allergies doxycycline Allergy (Intermediate, Verified 02/18/20 05:08) syncope,hypotension Home Medications: Ambulatory Orders Medication Instructions Recorded atorvastatin 10 mg tablet 10 mg PO QDAY 02/26/18 lactobacillus combination no.9 4 4,000 mmu cells PO QDAY 02/26/18 billion cell capsule olopatadine 0.2 % eye drops 1 drp OPHTHALMIC QDAY 02/26/18 tamsulosin 0.4 mg capsule 0.4 mg PO QDAY 02/26/18 ipratropium bromide 42 mcg (0.06 1 spray INTRANASAL QHS ml 12/03/19 %) nasal spray eszopiclone 2 mg tablet 2 mg PO BID tab 01/06/20 Azelastine HCl [Astelin] 1 spray NASAL BID 02/18/20 Donepezil HCl [Aricept] 20 mg PO DAILY 02/18/20 Memantine HCl [Namenda Xr] 28 mg PO DAILY 02/18/20 Surgical History: Surgical History (Last Reviewed 02/18/20 @ 06:[address] Roque Naik MD) History of colonoscopy Z98.890 No history of previous surgery Lives: With Family Smoking Status: Former smoker Alcohol: None Drugs: None Review of Systems Constitutional: Denies: Chills, Fever, Weight Change HEENT: Denies: Head Aches, Sinus Congestion, Sinus Drainage Cardiovascular: Reports: Syncope. Denies: Chest Pain, Palpitations Respiratory: Denies: Cough, Shortness of breath at rest, Sputum production Gastrointestinal: Denies: Abdominal Pain, Nausea, Vomiting Genitourinary: Denies: Dysuria Musculoskeletal: Denies: Joint Pain, Joint Tenderness Skin: Denies: Rash, Wounds Neurological: Denies: Numbness, Tingling, Focal weakness Psychiatric: Denies: Anxiety, Depression, Homicidal Ideations, Suicidal Ideations Hematologic/ Lymphatic: Denies: Easy Bruising, Easy Bleeding VTE Information - Inpt Only VTE Present on Admission: No VTE Mechan Device Prophylaxis: SCD's VTE Pharm Prophylaxis ordered?: No Patient Problems: Active and Suspected Problems (Last Reviewed 02/18/20 @ 06:[address] Roque Naik MD) Syncope and collapse (Acute) Sinus bradycardia (Acute) - Physical Exam Vitals/I&O's: Vital Signs Temp Pulse Resp BP Pulse Ox 97.6 F L 53 L 10 L 129/87 H 99 02/18/20 04:59 02/18/20 05:48 02/18/20 05:48 02/18/20 04:59 02/18/20 05:48 Oxygen Delivery Method Room Air Weight: 77.6 kg Body Mass Index (BMI) 24.5 General: Alert, Confused HEENT: Atraumatic, PERRLA, EOMI, Normocephalic Neck: Supple, No JVD, Negative Carotid Bruits Lungs: Clear to auscultation, Normal air movement, No rhonchi, No wheeze, No rales Cardiovascular: Normal S1, Normal S2, No murmurs, Bradycardic Abdomen: Bowel Sounds Present, Soft, Non Tender Extremities: No edema, Capillary Refill Less than 3 Seconds Skin: No rashes, No breakdown Musculoskeletal: No Tenderness to Palpation of Joints or Extremities Neurological: Cranial nerves II-XII grossly intact Psych/Mental Status: Normal Affect, Appropriate Laboratory Results 02/18/20 05:05: WBC 7.2, RBC 4.73, Hgb 14.6, Hct 44.4, MCV 93.9, MCH 30.9, MCHC 32.9, RDW Std Deviation 42.4, RDW Coeff of Isidra 12.2, Plt Count 187, MPV 10.7, Immature Gran % (Auto) 0.700, Neut % (Auto) 54.5, Lymph % (Auto) 29.9, Lyon % (Auto) 11.8 H, Eos % (Auto) 2.4, Baso % (Auto) 0.7, Absolute Neuts (auto) 4.0, Absolute Lymphs (auto) 2.16, Nucleated RBC % 0 02/18/20 05:05: Sodium 141, Potassium 3.7, Chloride 105, Carbon Dioxide 32.0, Anion Gap 4 L, BUN 13, Creatinine 1.16, Estim Creat Clear Calc 57.69, Est GFR (MDRD) Af Amer 79, Est GFR (MDRD) Non-Af 65, BUN/Creatinine Ratio 11.2, Glucose 133 H, Calcium 8.3 L, Troponin I < 0.015 Assessment/Plan All Active Problems (Last Reviewed 02/18/20 @ 06:[address] Roque Naik MD) Syncope and collapse (Acute) Sinus bradycardia (Acute) Syncope (Resolved 11/30/19) The patient is a 74 year old M with a significant history of BPH and Alzheimer dementia who presented to emergency department with recurrence syncope and bradycardia concerning for bradycardia triggering syncope. Syncope and collapse Likely secondary to bradycardia. Will put on PCU on telemetry. Recommended to emergency department to discuss the case with cardiology. Per emergency department the case was discussed with Dr. Pérez cardiology on-call. Per emergency department doctor, Dr. Pérez recommended that patient be monitored on telemetry and case further discussed with Dr. Valdez who knows patient better. Recommendations noted. Place patient on telemetry. Attending hospitalist in a.m. to consider discussing the case with Dr. Valdez. Meanwhile will keep patient n.p.o just in case pacemaker is indicated. Patient is on eszopiclone (sedative) which arvin his consciousness and also cause syncope and collapse. Decrease dose of eszopiclone from 2 mg twice daily to 1 mg twice daily. Routine orthostatic vitals. Stress test on 12/18/2019 was negative for exercise-induced ischemia or chest pain. He showed slightly decreased functional capacity for age. Left ventricular ejection fraction was 63% Cardiogram on 12/17/2019 was unremarkable Dysphagia. reports difficulty with swallowing and recommend soft mechanical diet; and Jell-O's.- thinks that patient is forgetting how to swallow. When patient is no longer n.p.o. consider soft mechanical diet; and jello-s. Of note reportedly patient is able to take his meds. Alzheimer dementia Aricept continued eszopiclone continued at reduced dose as above Allergic conjunctivitis Olopatadine continued BPH Flomax continued DVT prophylaxis SCD for now while we await cardiology to see patient. OBSV E&M: [id number] Initial observation care L3
--- NOTE | 2020-02-18 11:12 | PCM.PN.HOSP ---
<Frank Giron - Last Filed: 02/18/20 11:12> Patient Problems: Active and Suspected Problems (Last Reviewed 02/18/20 @ 07:[address] Roque Naik MD) Syncope and collapse (Acute) Sinus bradycardia (Acute) Reason for Visit: found down unconscious Subjective: Pt admitted with concern for syncope. The patient has AD and does not remember what happened. His , who sleeps in a different room, heard a crash. She came into the bathroom and saw what she describes as he had fallen onto the toilet and had his head on the ground. It is unclear if he had syncope or if he fell leading to being unconscious. There was no blood. Today he has a negative ROS. No MORALES, vision or hearing changes, slurred speech, facial droop, focal weakness. He has no hx stroke or seizure. Vitals/I&O's: Vital Signs Temp Pulse Resp BP Pulse Ox 98.1 F 56 L 18 118/71 97 02/18/20 11:05 02/18/20 11:05 02/18/20 11:05 02/18/20 11:05 02/18/20 11:05 Oxygen Delivery Method Room Air Weight: 165 lb 2.02 oz Body Mass Index (BMI) 25.1 Orthostatic Vital Signs Start: 02/18/20 10:57 Freq: q24h Status: Active Protocol: Activity Type Activity Date Activity User E-Sign Co-Sign Detail Recorded Client Recorded Date Recorded By Document 02/18/20 10:57 [email or web address] [id number] 02/18/20 11:03 [email or web address] 02/18/20 10:57 Orthostatic Vitals Standing -Blood Pressure (90/60-120/80) 140/78 H -Extremity Use Left Arm -Pulse Rate (60-100) 61 Sitting -Blood Pressure (90/60-120/80) 123/69 H -Extremity Use Left Arm -Pulse Rate (60-100) 62 Lying -Blood Pressure (90/60-120/80) 118/71 -Extremity Use Left Arm -Pulse Rate (60-100) 56 L General: Alert, Cooperative, Confused HEENT: Atraumatic, PERRLA, EOMI, Normocephalic Neck: Supple, No JVD, Negative Carotid Bruits Lungs: Clear to auscultation, Normal air movement Cardiovascular: Regular rate, No murmurs Abdomen: Bowel Sounds Present, Soft, Non Tender Extremities: No edema, Capillary Refill Less than 3 Seconds Skin: No rashes, No breakdown Musculoskeletal: No Tenderness to Palpation of Joints or Extremities Neurological: Cranial nerves II-XII grossly intact Psych/Mental Status: Normal Affect, Appropriate Laboratory Results 02/18/20 05:05: WBC 7.2, RBC 4.73, Hgb 14.6, Hct 44.4, MCV 93.9, MCH 30.9, MCHC 32.9, RDW Std Deviation 42.4, RDW Coeff of Isidra 12.2, Plt Count 187, MPV 10.7, Immature Gran % (Auto) 0.700, Neut % (Auto) 54.5, Lymph % (Auto) 29.9, [place] % (Auto) 11.8 H, Eos % (Auto) 2.4, Baso % (Auto) 0.7, Absolute Neuts (auto) 4.0, Absolute Lymphs (auto) 2.16, Nucleated RBC % 0 02/18/20 05:05: Sodium 141, Potassium 3.7, Chloride 105, Carbon Dioxide 32.0, Anion Gap 4 L, BUN 13, Creatinine 1.16, Estim Creat Clear Calc 57.69, Est GFR (MDRD) Af Amer 79, Est GFR (MDRD) Non-Af 65, BUN/Creatinine Ratio 11.2, Glucose 133 H, Calcium 8.3 L, Troponin I < 0.015 Current Medications Atorvastatin Calcium (Lipitor) 10 mg PO QHS ERICKA Dextrose (D50w Syringe) 0 gm IV X1 PRN; Protocol PRN Reason: Hypoglycemia Glucagon () 1 mg IM .X1 PRN PRN Reason: Hypoglycemia Sodium Chloride () 250 mls @ 15 mls/hr IV .[id number] PRN PRN Reason: Saline Flush Sodium Chloride () 250 mls @ 15 mls/hr IV .[id number] PRN PRN Reason: Additional IVPB Infusion Ipratropium [place] (Atrovent Nasal Vestal (G)) 1 spray NASAL QHS ERICKA Ondansetron HCl (Zofran) 4 mg IV Q8H PRN PRN PRN Reason: NAUSEA/VOMITING Sodium Chloride () 10 - 40 ml IV UD PRN PRN Reason: SALINE FLUSH Tamsulosin HCl (Flomax) 0.4 mg PO DAILY@1730 ERICKA STROKE Vital Signs/Narrative: Vital Signs Temp Pulse Pulse Pulse Pulse Resp BP 02/18/20 11:05 98.1 F 56 L 18 118/71 02/18/20 10:57 56 L 62 61 02/18/20 09:19 BP BP BP Pulse Ox 02/18/20 11:05 97 02/18/20 10:57 118/71 123/69 H 140/78 H 02/18/20 09:19 98 Medical Necessity - Tobacco Use Smoking Status: Former smoker Tobacco Use: Cigarettes Assessment/Plan All Active Problems (Last Reviewed 02/18/20 @ 07:[address] Roque Naik MD) Syncope and collapse (Acute) Sinus bradycardia (Acute) Syncope (Resolved 11/30/19) 1. Fall vs syncope - CT brain negative. no focal deficits. Reportedly a neighbor came to check and could not find a pulse and the paramedics found him responsive when they arrived. He was bradycardic in the ER - 40s raising suspicon for syncope. Rate 40-50s. Hold eszopiclone and memantine as they are sedating and may cause behavior change. Hold aricept as it may cause syncope and AV block. -Trop neg. Orthostatic vitals neg -july had syncope and bradycardia as well. -could not keep home monitor on due to dementia -Dr. Valdez consulted. 2. Dementia - complicating above. monitor off home medications. Obtain PTOT evals 3. BPH - flomax DVT ppx: SCDs This patient was seen by Frank Giron PA-C under the supervision of Dr. Jolly <Vasquez Jolly - Last Filed: 02/18/20 13:51> Vitals/I&O's: Vital Signs Temp Pulse Resp BP Pulse Ox 36.7 C 56 L 18 118/71 97 02/18/20 11:05 02/18/20 11:05 02/18/20 11:05 02/18/20 11:05 02/18/20 11:05 Oxygen Delivery Method Room Air Weight: 74.9 kg Body Mass Index (BMI) 25.1 Orthostatic Vital Signs Start: 02/18/20 10:57 Freq: q24h Status: Active Protocol: Activity Type Activity Date Activity User E-Sign Co-Sign Detail Recorded Client Recorded Date Recorded By Document 02/18/20 10:57 [id number] 02/18/20 11:03 ANSELMO 02/18/20 10:57 Orthostatic Vitals Standing -Blood Pressure (90/60-120/80) 140/78 H -Extremity Use Left Arm -Pulse Rate (60-100) 61 Sitting -Blood Pressure (90/60-120/80) 123/69 H -Extremity Use Left Arm -Pulse Rate (60-100) 62 Lying -Blood Pressure (90/60-120/80) 118/71 -Extremity Use Left Arm -Pulse Rate (60-100) 56 L General: Alert, Cooperative, Confused Neck: No Nodes, Trachea Midline Lungs: Clear to auscultation, Normal air movement, No rhonchi, No wheeze Cardiovascular: Regular rate, Regular Rhythm, Normal S1, Normal S2, No murmurs Abdomen: Bowel Sounds Present, Soft, Non Tender, Non-Distended Extremities: No edema, No Calf Tenderness Skin: No rashes, No breakdown Musculoskeletal: No Tenderness to Palpation of Joints or Extremities Psych/Mental Status: Normal Affect, Appropriate Laboratory Results 02/18/20 05:05: WBC 7.2, RBC 4.73, Hgb 14.6, Hct 44.4, MCV 93.9, MCH 30.9, MCHC 32.9, RDW Std Deviation 42.4, RDW Coeff of Isidra 12.2, Plt Count 187, MPV 10.7, Immature Gran % (Auto) 0.700, Neut % (Auto) 54.5, Lymph % (Auto) 29.9, [place] % (Auto) 11.8 H, Eos % (Auto) 2.4, Baso % (Auto) 0.7, Absolute Neuts (auto) 4.0, Absolute Lymphs (auto) 2.16, Nucleated RBC % 0 02/18/20 05:05: Sodium 141, Potassium 3.7, Chloride 105, Carbon Dioxide 32.0, Anion Gap 4 L, BUN 13, Creatinine 1.16, Estim Creat Clear Calc 57.69, Est GFR (MDRD) Af Amer 79, Est GFR (MDRD) Non-Af 65, BUN/Creatinine Ratio 11.2, Glucose 133 H, Calcium 8.3 L, Troponin I < 0.015 02/18/20 05:05: TSH 1.33 Current Medications Atorvastatin Calcium (Lipitor) 10 mg PO QHS ERICKA Azelastine HCl (Astelin) 1 spray NASAL BID ERICKA Dextrose (D50w Syringe) 0 gm IV X1 PRN; Protocol PRN Reason: Hypoglycemia Glucagon () 1 mg IM .X1 PRN PRN Reason: Hypoglycemia Sodium Chloride () 250 mls @ 15 mls/hr IV .[id number] PRN PRN Reason: Saline Flush Sodium Chloride () 250 mls @ 15 mls/hr IV .[id number] PRN PRN Reason: Additional IVPB Infusion Ipratropium [place] (Atrovent Nasal Vestal (G)) 1 spray NASAL QHS ERICKA Ondansetron HCl (Zofran) 4 mg IV Q8H PRN PRN PRN Reason: NAUSEA/VOMITING Sodium Chloride () 10 - 40 ml IV UD PRN PRN Reason: SALINE FLUSH Tamsulosin HCl (Flomax) 0.4 mg PO DAILY@1730 ERICKA STROKE Vital Signs/Narrative: Vital Signs Temp Pulse Pulse Pulse Pulse Resp BP 02/18/20 11:05 36.7 C 56 L 18 118/71 02/18/20 11:00 80 02/18/20 10:57 56 L 62 61 BP BP BP Pulse Ox 02/18/20 11:05 97 02/18/20 11:00 02/18/20 10:57 118/71 123/69 H 140/78 H Assessment/Plan Patient seen and examined independently. Data reviewed. I agree with the above note by the physician assistant auto center manager. 1. Syncope: Unclear if to syncopal episode or patient had a fall with antecedent concussion. If this is syncope etiology is not yet determined, could be bradycardia, vasovagal versus others. If it bradycardic could be associated with some of his medications which have been held. Currently patient is not bradycardic anymore. Patient's bradycardia may been a reflexive of his syncopal episode, however. We will continue to hold Aricept and monitor. If heart rate remains stable will monitor. If patient does have recurrent bradycardia then asked for further clarification by cardiology. 2. Dementia: Patient has advanced dementia but which will complicate care overall. Discussed the patient's and stated that we will focus on non-pharmacologic or physical restraints if at all possible and stated that for her best interest that it would be best for her to go home and that we would contact her with any issues or any further updates. Inpatient E&M: 14347 Subs Hosp L2
[2020-02-18 12:32] LABS: Thyroid Stim Hormone (TSH) 1.33 uIU/mL (0.358-3.74)
--- NOTE | 2020-02-18 15:06 | EKG12_ITS ---
Test Reason : Blood Pressure : / mmHG Vent. Rate : 062 BPM Atrial Rate : 062 BPM P-R Int : 186 ms QRS Dur : 104 ms QT Int : 406 ms P-R-T Axes : 035 048 012 degrees QTc Int : 412 ms Normal sinus rhythm Normal ECG When compared with ECG of 18-FEB-2020 05:14, MANUAL COMPARISON REQUIRED, DATA IS UNCONFIRMED Confirmed by JAIDEN ANTON ([id number]), assistant editor SERVANDO WILLIAM ([id number]) on 02/27/2020 10:36:29 AM Referred By: SHELLEY Confirmed By:JAIDEN ANTON
--- NOTE | 2020-02-18 15:11 | PCM.CONS.C ---
Reason for Consult Date of Consultation: 02/18/20 History of Present Illness: Presents with syncopal episode. He was on the toilet and had syncope. His came in and he was laying on the ground face first and sweaty. She stated he was unconscious for approximately 20 minutes. He was breathing on his own. He finally came around when EMS arrived. He has chronic dementia. He does not remember what happened. He denies any complaints at this time. He denies any pain or injury. There is no external evidence of injury. Blood sugar was 89 for EMS. EKG was obtained showing sinus bradycardia for EMS. Patient has a history of sinus bradycardia. In November he had a syncopal event in [place]. He was evaluated in the emergency department and his heart rate slowly recovered. He was seen by me as an outpatient. He underwent stress testing which was negative for ischemia. Patient did not have chronotropic incompetence. His heart rate went up to over 120 bpm post exercise. His 2D echo was unremarkable. Holter was ordered but patient kept taking it off due to his dementia. Patient has been admitted to the PCU. He has had some episodes of sinus bradycardia but no significant pauses. He was negative for orthostatic hypotension. Review of systems: Patient has fairly advanced dementia and is not answering questions appropriately. Review of systems cannot be obtained. Past Medical History Allergies/Adverse Reactions: Allergies doxycycline Allergy (Intermediate, Verified 02/18/20 05:08) syncope,hypotension Home Medications: Ambulatory Orders Medication Instructions Recorded atorvastatin 10 mg tablet 10 mg PO QDAY 02/26/18 lactobacillus combination no.9 4 4,000 mmu cells PO QDAY 02/26/18 billion cell capsule olopatadine 0.2 % eye drops 1 drp OPHTHALMIC QDAY 02/26/18 tamsulosin 0.4 mg capsule 0.4 mg PO QDAY 02/26/18 ipratropium bromide 42 mcg (0.06 1 spray INTRANASAL QHS ml 12/03/19 %) nasal spray eszopiclone 2 mg tablet 1 mg PO QHS tab 01/06/20 Azelastine HCl [Astelin] 1 spray NASAL BID 02/18/20 Donepezil HCl [Aricept] 20 mg PO DAILY 02/18/20 Memantine HCl [Namenda Xr] 28 mg PO DAILY 02/18/20 Past Medical History (Chronic Problems): Chronic Problems (Last Reviewed 02/18/20 @ 07:[address] Roque Naik MD) Bradycardia (Chronic) Personal history of colonic polyps (Chronic) Anxiety (Chronic) Hemorrhoids (Chronic) Rosacea (Chronic) Arthritis (Chronic) Seasonal allergies (Chronic) Hypercholesterolemia (Chronic) Goiter, nontoxic, multinodular (Chronic) Surgical History: noncontributory Lives: With Family Smoking Status: Former smoker Tobacco Use: Cigarettes Alcohol: None Drugs: None Objective: Vital Signs Temp Pulse Resp BP Pulse Ox 98.1 F 56 L 18 118/71 97 02/18/20 11:05 02/18/20 11:05 02/18/20 11:05 02/18/20 11:05 02/18/20 11:05 Oxygen Delivery Method Room Air Weight: 165 lb 2.02 oz Body Mass Index (BMI) 25.1 Orthostatic Vital Signs Start: 02/18/20 10:57 Freq: q24h Status: Active Protocol: Activity Type Activity Date Activity User E-Sign Co-Sign Detail Recorded Client Recorded Date Recorded By Document 02/18/20 10:57 8 [id number] 02/18/20 11:03 [email or web address] 02/18/20 10:57 Orthostatic Vitals Standing -Blood Pressure (90/60-120/80) 140/78 H -Extremity Use Left Arm -Pulse Rate (60-100) 61 Sitting -Blood Pressure (90/60-120/80) 123/69 H -Extremity Use Left Arm -Pulse Rate (60-100) 62 Lying -Blood Pressure (90/60-120/80) 118/71 -Extremity Use Left Arm -Pulse Rate (60-100) 56 L General: Awake, Alert, Disoriented HEENT: Atraumatic Neck: Supple Cardiovascular: Regular Rhythm Extremities: No edema Skin: No Rashes Psych/Mental Status: - - Confused which appears to be his baseline from dementia 02/18/20 05:05: WBC 7.2, RBC 4.73, Hgb 14.6, Hct 44.4, MCV 93.9, MCH 30.9, MCHC 32.9, Plt Count 187, MPV 10.7, Immature Gran % (Auto) 0.700, Neut % (Auto) 54.5, Lymph % (Auto) 29.9, [place] % (Auto) 11.8 H, Eos % (Auto) 2.4, Baso % (Auto) 0.7, Absolute Neuts (auto) 4.0, Nucleated RBC % 0 02/18/20 05:05: Sodium 141, Potassium 3.7, Chloride 105, Carbon Dioxide 32.0, Anion Gap 4 L, BUN 13, Creatinine 1.16, Est GFR (MDRD) Af Amer 79, Est GFR (MDRD) Non-Af 65, BUN/Creatinine Ratio 11.2, Glucose 133 H, Calcium 8.3 L, Troponin I < 0.015 Rhythm: EKG: ECHO: Stress Test: Cardiac Cath: PCI: CT Surgery: Holter monitor: EPS: PPM: CXR: Chest CT Scan: Assessment/Plan 1. Syncope: This could be vasovagal syncope. Significant bradycardia causing syncope is also a possibility. He did not however have chronotropic incompetence when he walked on the treadmill. As an outpatient we could not do event monitoring/Holter monitoring. We will continue to monitor him overnight on telemetry.
[2020-02-18] MEDS: Tamsulosin HCl 0.4 MG Capsule PO (16:34)
[2020-02-18] MEDS: Azelastine HCl NASAL.SRY 1 SPRAY NASAL (22:33)
[2020-02-18] MEDS: Atorvastatin Calcium 10 MG Tablet PO (22:33)
[2020-02-18] MEDS: Ipratropium Bromide 0.06% NASAL SPRAY 1 SPRAY NASAL (22:34)
[2020-02-18] MEDS: 0.9% Saline Lock 10 ML Syringe IV (22:34)
[2020-02-19] VITALS (8 sets, daily range): BP systolic 99–139; BP diastolic 62–79; PULSE 57–85; RESP 16–18; TEMP 36.6–36.9; O2SAT 94–96
[2020-02-19] MEDS: Acetaminophen 325 MG Tablet 650 MG PO (02:41)
[2020-02-19] MEDS: Azelastine HCl NASAL.SRY 1 SPRAY NASAL (10:17)
--- NOTE | 2020-02-19 10:52 | DCINST_ITS ---
- Discharge Diagnoses Current Active Problems: Current Active and Chronic Problems (Last Reviewed 02/18/20 @ 07:[address] Roque Naik MD) Syncope and collapse (Acute) Sinus bradycardia (Acute) You will use the following diet at home:: No restrictions Discharge Activity: Return to Normal Activity Call your doctor if you observe: Shortness of breath, Dizziness, Fainting spells, Chest pain Allergies/Adverse Reactions: Allergies doxycycline Allergy (Intermediate, Verified 02/18/20 05:08) syncope,hypotension Medications to take at Discharge atorvastatin 10 mg tablet 10 mg PO QDAY 02/26/18 lactobacillus combination no.9 4 billion cell capsule 4,000 mmu cells PO QDAY 02/26/18 olopatadine 0.2 % eye drops 1 drp OPHTHALMIC QDAY 02/26/18 tamsulosin 0.4 mg capsule 0.4 mg PO QDAY 02/26/18 ipratropium bromide 42 mcg (0.06 %) nasal spray 1 spray INTRANASAL QHS ml 12/03/19 eszopiclone 2 mg tablet 1 mg PO QHS tab 01/06/20 Azelastine HCl [Astelin] 1 spray NASAL BID 02/18/20 Memantine HCl [Namenda Xr] 28 mg PO DAILY 02/18/20 Primary Care Physician: Ralf Hawkins MD [Primary Care Provider] - Please follow up with your Primary Care Physician in: 1 Week Test Results: Test results from this visit will be discussed in further detail at your follow- up appointment, if applicable. Proposed Discharge Date: 02/19/20
--- NOTE | 2020-02-19 10:54 | DS.PCM_ITS ---
<Amber Devine - Last Filed: 02/19/20 11:03> Discharge Date and Diagnosis Date of Admission: 02/18/20 Date of Discharge: 02/19/20 - Primary Discharge Diagnosis Active and Suspected Problems (Last Reviewed 02/18/20 @ 07:[address] Roque Naik MD) 1. Syncope 2. Mild bradycardia 3. Advanced dementia 4. BPH - Secondary Discharge Diagnosis Chronic Problems (Last Reviewed 02/18/20 @ 07:[address] Roque Naik MD) Bradycardia (Chronic) Personal history of colonic polyps (Chronic) Anxiety (Chronic) Hemorrhoids (Chronic) Rosacea (Chronic) Arthritis (Chronic) Seasonal allergies (Chronic) Hypercholesterolemia (Chronic) Goiter, nontoxic, multinodular (Chronic) Hospital Course and Treatment Imaging Results: Diagnostic Data Chest X-Ray 02/18/20 05:15 IMPRESSION: More shallow inspiratory level with compression of dependent parenchyma. Probable atelectasis left base. No pulmonary edema, congestive heart failure or confluent pneumonia. Degenerative changes, remote healed rib fractures and remote granulomatous exposure. Electronically Signed: Tamia Christianson MD at 5:37 EDT , Service support , Brain CT 02/18/20 05:16 IMPRESSION: Chronic involutional changes of the brain. There is no acute intracranial pathology. Electronically Signed: Tamia Christianson MD at 5:46 EDT , Service support , Dr. Valdez- Cardiology Operations: None Procedures: None Summary of Care Provided: The patient is a 74 year old M admitted 02/18/2020 due to syncope. 1. Syncope-CT brain negative. Cardiology consulted. Suspect vasovagal syncope versus secondary to bradycardia. Orthostatic vitals negative. Continue to hold Aricept at discharge. Resume Namenda. Bradycardia improved. If patient has recurrent symptoms, may require event monitor. Follow-up with primary care physician and cardiology in 1 to 2 weeks. 2. Mild bradycardia-improved. Continue outpatient follow-up. 3. Advanced dementia-continue Namenda. Aricept discontinued as noted above. 4. BPH- continue flomax. Patient seen and examined prior to discharge. Physical assessment as noted below. Patient is stable for discharge with follow up recommendations as noted above. This patient was seen by COLE Aguirre under the supervision of Dr. Jolly. - Physical Exam Vitals/I&O's: Vital Signs Temp Pulse Resp BP Pulse Ox 97.8 F 75 18 127/62 H 96 02/19/20 08:40 02/19/20 08:40 02/19/20 08:40 02/19/20 08:40 02/19/20 08:40 Oxygen Delivery Method Room Air Weight: 165 lb 2.02 oz Body Mass Index (BMI) 25.1 Orthostatic Vital Signs Start: 02/18/20 10:57 Freq: q24h Status: Active Protocol: Activity Type Activity Date Activity User E-Sign Co-Sign Detail Recorded Client Recorded Date Recorded By Document 02/19/20 08:36 [id number] 02/19/20 08:36 JM8 02/19/20 08:36 Orthostatic Vitals Standing -Blood Pressure (90/60-120/80) 99/62 -Extremity Use Left Arm -Pulse Rate (60-100) 85 Sitting -Blood Pressure (90/60-120/80) 127/62 H -Extremity Use Left Arm -Pulse Rate (60-100) 75 Intake and Output for Last 24 Hours 02/17/20 02/18/20 02/19/20 23:59 23:59 23:59 Intake Total 120 / 120 600 / 600 Balance 120 / 120 600 / 600 General: Alert, Cooperative HEENT: Atraumatic, PERRLA, EOMI, Normocephalic Neck: Supple, No JVD, Negative Carotid Bruits Lungs: Clear to auscultation, Normal air movement Cardiovascular: Regular rate, No murmurs Abdomen: Bowel Sounds Present, Soft, Non Tender Extremities: No edema, Capillary Refill Less than 3 Seconds Skin: No rashes, No breakdown Musculoskeletal: No Tenderness to Palpation of Joints or Extremities Neurological: Cranial nerves II-XII grossly intact, Neuro grossly intact Psych/Mental Status: Flat Affect Laboratory Results 02/18/20 05:05: TSH 1.33 Current Medications Acetaminophen (Tylenol) 650 mg PO Q6H PRN PRN PRN Reason: Pain 1-10/10; Fever >100.4 Last Admin: 02/19/20 02:41 Dose: 650 mg Documented by: Atorvastatin Calcium (Lipitor) 10 mg PO QHS [facility] Last Admin: 02/18/20 22:33 Dose: 10 mg Documented by: Azelastine HCl (Astelin) 1 spray NASAL BID [facility] Last Admin: 02/19/20 10:17 Dose: 1 spray Documented by: Dextrose (D50w Syringe) 0 gm IV X1 PRN; Protocol PRN Reason: Hypoglycemia Glucagon () 1 mg IM .X1 PRN PRN Reason: Hypoglycemia Sodium Chloride () 250 mls @ 15 mls/hr IV .[id number] PRN PRN Reason: Saline Flush Sodium Chloride () 250 mls @ 15 mls/hr IV .[id number] PRN PRN Reason: Additional IVPB Infusion Ipratropium [place] (Atrovent Nasal [place] (G)) 1 spray NASAL QHS [facility] Last Admin: 02/18/20 22:34 Dose: 1 spray Documented by: Memantine (Namenda) 10 mg PO BID [facility] Ondansetron HCl (Zofran) 4 mg IV Q8H PRN PRN PRN Reason: NAUSEA/VOMITING Sodium Chloride () 10 - 40 ml IV UD PRN PRN Reason: SALINE FLUSH Last Admin: 02/18/20 22:34 Dose: 10 ml Documented by: Tamsulosin HCl (Flomax) 0.4 mg PO DAILY@1730 [facility] Last Admin: 02/18/20 16:34 Dose: 0.4 mg Documented by: Discharge Diet: No Restrictions Discharge Activity: Return to Normal Activity Call your doctor if you observe: Shortness of breath, Dizziness, Fainting spells, Chest pain Home Medications: Medications to take at Discharge atorvastatin 10 mg tablet 10 mg PO QDAY 02/26/18 lactobacillus combination no.9 4 billion cell capsule 4,000 mmu cells PO QDAY 02/26/18 olopatadine 0.2 % eye drops 1 drp OPHTHALMIC QDAY 02/26/18 tamsulosin 0.4 mg capsule 0.4 mg PO QDAY 02/26/18 ipratropium bromide 42 mcg (0.06 %) nasal spray 1 spray INTRANASAL QHS ml 12/03/19 eszopiclone 2 mg tablet 1 mg PO QHS tab 01/06/20 Azelastine HCl [Astelin] 1 spray NASAL BID 02/18/20 Memantine HCl [Namenda Xr] 28 mg PO DAILY 02/18/20 Primary Care Physician: Ralf Hawkins MD [Primary Care Provider] - Please follow up with your Primary Care Physician in: 1 Week Disposition: Home Minutes spent on discharge:: 35 Patient Condition:: Stable Medical Necessity - Tobacco Use Smoking Status: Former smoker Tobacco Use: Cigarettes Meaningful Use Info Meaningful Use Diagnoses (Choose all that apply): None applicable <Vasquez Jolly - Last Filed: 02/19/20 13:59> Discharge Date and Diagnosis - Secondary Discharge Diagnosis Chronic Problems (Last Reviewed 02/18/20 @ 07:[address] Roque Naik MD) Bradycardia (Chronic) Personal history of colonic polyps (Chronic) Anxiety (Chronic) Hemorrhoids (Chronic) Rosacea (Chronic) Arthritis (Chronic) Seasonal allergies (Chronic) Hypercholesterolemia (Chronic) Goiter, nontoxic, multinodular (Chronic) Hospital Course and Treatment Operations: None Procedures: None Summary of Care Provided: Patient seen and examined independently. Data reviewed. I agree with the above note by the nurse practitioner. The patient is a 74 year old M presents with a syncope. Patient was found down and was out and diaphoretic. Patient is demented and was unable to write any history. Patient was noted to be bradycardic. Bradycardia may have been reactive with a syncopal episode which may have been vasovagal but it is unclear if patient may have had some bradycardia that may have been induced by 1 of his medications, particularly with the donezepil. Patient was monitored his heart rate remained stable during the course of this hospitalization. Discussed with the patient is and made a recommendation of holding the donezepil but also resuming his amantadine and all his other home medications. Discussed with cardiology who do not feel that a pacemaker is necessary at this time. Patient follow-up with cardiology as outpatient to see if an EP evaluation would be warranted at a later point. [] - Physical Exam Vitals/I&O's: Vital Signs Temp Pulse Resp BP Pulse Ox 36.6 C 75 18 127/62 H 96 02/19/20 10:52 02/19/20 10:52 02/19/20 10:52 02/19/20 10:52 02/19/20 10:52 Oxygen Delivery Method Room Air Weight: 74.9 kg Body Mass Index (BMI) 25.1 Orthostatic Vital Signs Start: 02/18/20 10:57 Freq: q24h Status: Active Protocol: Activity Type Activity Date Activity User E-Sign Co-Sign Detail Recorded Client Recorded Date Recorded By Document 02/19/20 08:36 [id number] 02/19/20 08:36 JM8 02/19/20 08:36 Orthostatic Vitals Standing -Blood Pressure (90/60-120/80) 99/62 -Extremity Use Left Arm -Pulse Rate (60-100) 85 Sitting -Blood Pressure (90/60-120/80) 127/62 H -Extremity Use Left Arm -Pulse Rate (60-100) 75 Intake and Output for Last 24 Hours 02/17/20 02/18/20 02/19/20 23:59 23:59 23:59 Intake Total 120 / 120 840 / 840 Balance 120 / 120 840 / 840 General: Cooperative, Confused HEENT: Atraumatic, Normocephalic Neck: No Nodes, Trachea Midline Lungs: Clear to auscultation, Normal air movement, No rhonchi, No wheeze Cardiovascular: Regular rate, Regular Rhythm, Normal S1, Normal S2, No murmurs Discharge Diet: No Restrictions Discharge Activity: Return to Normal Activity Call your doctor if you observe: Shortness of breath, Dizziness, Fainting spells, Chest pain Disposition: Home Minutes spent on discharge:: 35 Patient Condition:: Stable OBSV E&M: [id number] Observation care discharge
--- NOTE | 2020-02-19 11:14 | CASEMGMT ---
TONNY NAVARRETE called Fiorella Chan to review RITTER form. Patient has dementia and not able to sign form. Fiorella voiced understanding and had no questions or concerns regarding RITTER form. TONNY NAVARRETE made copy of form and included with patient's home paperwork. No further questions or concerns from , Fiorella.
[2020-02-19] MEDS: Memantine Hydrochloride 10 MG Tablet PO (11:41)
== END 2020-02-19 10:52 | disposition home or self-care (01) ==
LOC: ED 06:15 → PCU 06:40
PROVIDERS: Physician Assistant; Admitting Provider Hospitalist; Emergency Provider Emergency Medicine; PCP Family Medicine
DX: R55 Syncope and collapse (principal); G30.9 Alzheimer's disease, unspecified; F02.80 Dementia in other diseases classified elsewhere, unspecified severity, without behavioral disturbance, psychotic disturbance, mood disturbance, and anxiety; N40.0 Benign prostatic hyperplasia without lower urinary tract symptoms; M19.90 Unspecified osteoarthritis, unspecified site; E78.00 Pure hypercholesterolemia, unspecified; E04.2 Nontoxic multinodular goiter; F41.9 Anxiety disorder, unspecified; R00.1 Bradycardia, unspecified; L71.9 Rosacea, unspecified; R13.10 Dysphagia, unspecified; H10.10 Acute atopic conjunctivitis, unspecified eye; Z87.891 Personal history of nicotine dependence; Z79.899 Other long term (current) drug therapy; R94.31 Abnormal electrocardiogram [ECG] [EKG]
CPT/HCPCS: 70450; 71045; 80048; 84443; 84484; 85025; 93005; 99218; 99285; A4216; G0378

== ENCOUNTER → 2020-03-04 12:09 | Outpatient (CLI) | payer MEDICARE, OTHER, SELFPAY ==
[2020-02-18 06:39] VITALS: BMI 25.1
[2020-02-25 09:14] VITALS: BMI 25.1
--- NOTE | 2020-03-04 12:14 | MRI_ITS ---
STUDY: MRI BRAIN WITHOUT CONTRAST REASON FOR EXAM: Male, 74 years old. dysphagia, syncope, fainitng, h/o alzheimers TECHNIQUE: Standardized multiplanar fat and water weighted pulse sequences were obtained. COMPARISON: CT 02/18/2020 FINDINGS: There is moderate cerebral atrophy with widening of the extra-axial spaces and ventricular dilatation. There are a limited number of small white matter hyperintensities, distributed throughout the deep white matter tracts of the cerebral hemispheres, consistent with mild chronic white matter ischemic changes. There is no evidence for recent intracranial ischemia or other cause of cytotoxic edema on diffusion weighted imaging (DWI). Normal T2* images of the brain without demonstrated susceptibility artifact. There is no demonstrated hemosiderin stain. Thin section coronal and straight bilateral hippocampal atrophy which may be significant in a history of cognitive decline. Normal bilateral basal ganglia. Normal thalami. There is no extra-axial fluid accumulation. Normal flow voids within the major intracranial circulation suggesting patency by spin echo criteria. Normal sella turcica, pituitary gland, infundibular stalk, optic chiasm and hypothalamus. Normal tectal plate and pineal gland. Normal midbrain, rai and medulla. Normal cerebellum. Normal basal cisterns. Normal bilateral temporal bones. Normal bilateral internal auditory canals. No demonstrated orbital abnormality, within the constraints of a routine brain study. Normal visualized paranasal sinuses. Normal calvarium and skull base. Normal visualized soft tissue structures. Normal visualized upper cervical spine. MRI/Brain without Contrast IMPRESSION: Involutional changes of the brain, as described above. Electronically Signed: Jd Butcher MD at 13:15 EDT Tel , Service support ,
== END ==
PROVIDERS: PCP Family Medicine; Referring Provider Psychiatry & Neurology Neurology; Visit Provider Psychiatry & Neurology Neurology
DX: R13.12 Dysphagia, oropharyngeal phase (principal)
CPT/HCPCS: 70551

== ENCOUNTER 2020-06-13 18:42 | Emergency (ER) | payer MEDICARE, OTHER, SELFPAY ==
[2020-03-24 13:54] VITALS: BMI 25.1
[2020-06-13 18:43] VITALS: BP 108/60; PULSE 71; RESP 16; TEMP 36.9; O2SAT 96; BMI 23.2
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
--- NOTE | 2020-06-13 19:08 | EKG12_ITS ---
Test Reason : DYSRHYTHMIA Blood Pressure : / mmHG Vent. Rate : 066 BPM Atrial Rate : 066 BPM P-R Int : 190 ms QRS Dur : 100 ms QT Int : 392 ms P-R-T Axes : 041 045 018 degrees QTc Int : 410 ms Normal sinus rhythm Normal ECG Confirmed by CHAYA JULES, LAWRENCE ([id number]), editor book MARILU VILLEGAS ([id number]) on 06/15/2020 9:26:56 AM Referred By: DC Confirmed By:LAWRENCE LARKIN MD
[2020-06-13 20:11] LABS: Absolute Lymphocyte Count 1.42 X10^3/uL (0.83-4.51); Absolute Neutrophil Count 3.8 X10^3/uL (2.0-7.7); Basophil# 0.03 X10^3/uL; Basophil% 0.5 % (0-1); Eosinophil# 0.13 X10^3/uL; Eosinophils% 2.1 % (0-5); Hematocrit 41.3 % (40-54); Hemoglobin 13.6 g/dL (13.0-16.5); Lymphocyte # 1.42 X10^3/ul (4.0); Lymphocyte % 22.9 % (19-41); Mean Corp Hgb Conc 32.9 g/dL (32-36); Mean Corpuscular Volume 94.1 fL (80-94); Mean Platelet Vol. 11.5 fl (6.2-12.0); Monocyte# 0.78 X10^3/uL; Monocyte% 12.6 % (0-10); NRBC Flagged by Analyzer 0 % (0-5); Neutrophil # 3.82 X10^3/uL (2.7-7.7); Neutrophil % 61.6 % (47-70); Platelet Count 166 K/mm3 (150-450); RBC Distribution Width CV 13.1 % (11.6-14.6); Red Blood Count 4.39 M/mm3 (4.6-6.2); White Blood Count 6.2 K/mm3 (4.4-11.0)
[2020-06-13 20:15] LABS: Bacteria 0 SEEN /hpf (None Seen); Mucous, Urine 0 SEEN /hpf (<or=2+); White Blood Cells 0 SEEN /hpf (0-5)
[2020-06-13] MEDS: Ziprasidone IM 20 MG/ML VIAL 10 MG IM ×2 (20:16→20:59)
[2020-06-13 20:18] LABS: Color, Urine Yellow (Yellow); Glucose, Dipstick Normal (Normal); Ketone-Dipstick Negative (Negative); Leukocyte Esterase-Dipstick Negative /ul (Negative); Nitrite-Dipstick Negative (Negative); Occult Blood-Urine 25 /ul (Negative); Protein-Dipstick Negative (Negative); Specific Gravity, Urine 1.015 (1.002-1.030); Urine Bilirubin Dipstick Negative (Negative); Urine Clarity Sl. Cloudy (Clear); Urine Urobilinogen Normal (Normal); Urine pH 6.5 (5.0 - 8.0)
[2020-06-13 20:25] LABS: Alcohol, Blood (Medical)-Serum < 3.0 mg/dL
[2020-06-13 20:25] LABS: Amorphous Sediment 1+ URATE; Red Blood Cells-Urine 5-10 SEEN /hpf (0-5); Squamous Epithelial Cells - UA 0-5 SEEN /hpf (0-5)
[2020-06-13 20:34] LABS: Amphetamine Urine VISTA NEGATIVE (<1000 ng/mL); Barbiturate Urine VISTA NEGATIVE (< 200 ng/mL); Benzodiazepine Urine VISTA NEGATIVE (< 200 ng/mL); Cocaine Urine VISTA NEGATIVE (< 300 ng/mL); Ecstacy Urine VISTA NEGATIVE (< 500 ng/mL); Methadone Urine VISTA NEGATIVE (< 300 ng/mL); PCP Urine VISTA NEGATIVE (< 25 ng/mL); THC Urine VISTA NEGATIVE (< 50 ng/mL); Vista UDS pH Range 6
[2020-06-13 20:36] LABS: ALB/GLOB Ratio 1.3 RATIO (0.9-2.4); AST(SGOT) 9 U/L (15-37); Alanine Aminotransfer ALT/SGPT 7 U/L (16-61); Albumin, Serum 3.4 g/dL (3.2-5.0); Alkaline Phosphatase 69 U/L (45-117); Anion Gap 6 (5-15); BUN 20 mg/dL (7-18); BUN/Creat Ratio 20.9 RATIO (10-20); Calcium,Total 8.4 mg/dL (8.5-10.1); Chloride 107 mmol/L (98-107); Creatinine, Serum 0.96 mg/dL (0.70-1.30); EST Glomerular Filtration Rate 81 mL/min (>60); Est Glom Filt Rate - Afr Amer 98 mL/min (>60); Estimated Creatinine Clearance 67.51 ml/min; Globulin 2.7 g/dL (2.2-4.2); Glucose 104 mg/dL (74-106); Potassium 3.8 mmol/L (3.5-5.1); Protein, Total 6.1 g/dL (6.4-8.2); Sodium Level 143 mmol/L (136-145); Thyroid Stim Hormone (TSH) 0.98 uIU/mL (0.358-3.74)
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
--- NOTE | 2020-06-13 20:55 | ED.RN ---
[facility] PAGED TO SEE PATIENT
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
--- NOTE | 2020-06-13 22:07 | ED.RN ---
[facility] IS AWARE OF PATIENT AND CHART FAXED TO THEM AT THIS TIME
--- NOTE | 2020-06-13 22:44 | ED.RN ---
TONNY Torres attempted to apply blood pressure cuff to patient to take vital signs. Patient immediately began to wake up and start moving around. Will attempt vital signs at a later time in order to avoid agitating patient.
[2020-06-13 22:47] VITALS: RESP 18
[2020-06-14] VITALS (12 sets, daily range): BP systolic 99–130; BP diastolic 75–84; PULSE 64–78; RESP 14–18; TEMP 36.4; O2SAT 97–98
--- NOTE | 2020-06-14 00:21 | ED.RN ---
spoke with crisis at this time about patient
--- NOTE | 2020-06-14 02:02 | ED.RN ---
patient information has been faxed to [facility] for possible admission
--- NOTE | 2020-06-14 05:57 | ED.RN ---
billy updated on patient condition at this time
--- NOTE | 2020-06-14 06:40 | ED.RN ---
patient has been formly accepted to [facility]. faxing paperwork, first open bed at 10 am
[2020-06-14] MEDS: Haloperidol Lactate 5 MG/ML Vial 2 MG IM (06:55)
--- NOTE | 2020-06-14 09:12 | ED.RN ---
REPORT GIVEN TO TONNY MARINO AT [facility]. CURRENTLY AWAITING TRANSPORT.
--- NOTE | 2020-06-14 09:30 | ED.RN ---
PT RESTLESS, WILL NOT STAY IN ROOM AND STAFF IS UNABLE TO DIRECT HIM. DR. SUGGS AWARE.
[2020-06-14] MEDS: Ziprasidone IM 20 MG/ML VIAL IM (09:35)
--- NOTE | 2020-06-14 12:02 | ED.RN ---
REPORT TO EMS. PT SKIN P/W/D, RESP EVEN AND UNLABORED, NO DISTRESS NOTED. PT OUT OF ED WITH EMS FOR TRANSPORT TO [facility].
== END 2020-06-14 12:07 ==
LOC: ED 19:31
PROVIDERS: Emergency Provider Emergency Medicine; PCP Family Medicine
DX: F03.90 Unspecified dementia, unspecified severity, without behavioral disturbance, psychotic disturbance, mood disturbance, and anxiety (principal); R45.1 Restlessness and agitation; S09.90XA Unspecified injury of head, initial encounter; Y04.0XXA Assault by unarmed brawl or fight, initial encounter; Y93.9 Activity, unspecified; Y92.129 Unspecified place in nursing home as the place of occurrence of the external cause; Y99.9 Unspecified external cause status; Z79.899 Other long term (current) drug therapy
CPT/HCPCS: 70450; 80053; 80307; 80320; 81001; 84443; 85025; 93005; 96372; 99285; P9612; G0480; J3486